=== PATIENT | male | born 1960 | race Caucasian/White ===

== ENCOUNTER 2024-04-25 11:58 | Emergency (ER) | payer SELFPAY ==
[~2024-04-25] VITALS: Ht 180.3 cm; Wt 92.0 kg
[2024-04-25] MEDS: cefTRIAXone SOD 1,000 MG VL IM ONE (15:20)
[2024-04-25 16:34] VITALS: BP 127/81; PULSE 84; RESP 18; TEMP 98.6; O2SAT 98
[2024-04-25] MEDS ORDERED: CEPH500C PO (16:47)
[2024-04-25] MEDS: NEOMYCIN-BACITRACIN-POLYM UNITDOSE PKG TOP OINT TOP ONE (17:04)
[2024-04-25] MEDS: TETANUS-DIPTH-ACEL PERTUSSIS 0.5ML SYR Tdap IM ONE (17:05)
== END 2024-04-25 17:14 | disposition home or self-care (01) ==
LOC: ER 11:58
DX: S60.552A Superficial foreign body of left hand, initial encounter (principal); X58.XXXA Exposure to other specified factors, initial encounter; Y93.89 Activity, other specified; Y92.89 Other specified places as the place of occurrence of the external cause; Y99.0 Civilian activity done for income or pay
CPT/HCPCS: 73130; 76881; 90471; 90715; 96372; 99285; J0696